=== PATIENT | female | born 1935 | race Two or more races ===

== ENCOUNTER 2019-05-07 09:25 | Emergency (ER) | payer MEDICARE ==
[~2019-05-07] VITALS: Ht 162.6 cm; Wt 59.9 kg
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
--- NOTE | 2019-05-07 09:57 | NUR ---
patient taken to ct.
[2019-05-07] MEDS ORDERED: FERR325T23 PO (10:38)
[2019-05-07] MEDS ORDERED: ASPI-605 PO (10:38)
[2019-05-07] MEDS ORDERED: METF500S7 PO (10:38)
[2019-05-07] MEDS ORDERED: ESCI5TAB PO (10:38)
[2019-05-07] MEDS ORDERED: METO25TA6 PO (10:38)
[2019-05-07] MEDS ORDERED: ATOR10TA PO (10:38)
[2019-05-07] MEDS ORDERED: GLYC0.2V IH (10:38)
[2019-05-07] MEDS ORDERED: LORA-259 PO (10:38)
[2019-05-07] MEDS ORDERED: HYDR-4384 PO ×2 (10:38→10:42)
[2019-05-07] MEDS ORDERED: CRAN425C6 PO (10:38)
[2019-05-07] MEDS ORDERED: CALC-883 PO (10:38)
[2019-05-07] MEDS ORDERED: LINA5TAB PO (10:38)
[2019-05-07] MEDS ORDERED: LEVO100T PO (10:38)
[2019-05-07] MEDS ORDERED: DOCU-141 PO (10:38)
[2019-05-07] MEDS ORDERED: INSU100V10 SQ (10:38)
[2019-05-07] MEDS ORDERED: MULT-439 PO (10:38)
[2019-05-07] MEDS ORDERED: TYL2T PO (10:39)
[2019-05-07] MEDS ORDERED: CRAN3875 PO (10:42)
[2019-05-07] MEDS ORDERED: ACET-2030 PO (10:42)
[2019-05-07] MEDS ORDERED: ASCO500T9 PO (10:42)
[2019-05-07 10:57] LABS: BASOPHILS % (AUTO) 0.6 % (0.0-2.0); EOSINOPHILS % (AUTO) 1.9 % (0.0-6.0); HEMATOCRIT 37 % (33-45); HEMOGLOBIN 12.2 g/dL (11.5-14.8); LYMPHOCYTES # (AUTO) 1.7 /CMM (0.8-4.8); LYMPHOCYTES % (AUTO) 20.2 % (20.0-44.0); MEAN CORPUSCULAR HGB CONC 33 g/dl (31.0-36.0); MEAN CORPUSCULAR VOLUME 97 fL (82-100); MONOCYTES # (AUTO) 0.5 /CMM (0.1-1.30); MONOCYTES % (AUTO) 6.1 % (2.0-12.0); NEUTROPHILS # (AUTO) 5.8 /CMM (1.8-8.9); NEUTROPHILS % (AUTO) 71.2 % (43.0-81.0); PLATELET COUNT (AUTO) 254 /CMM (150-450); RED BLOOD CELL COUNT(AUTO) 3.83 MIL/uL (4.0-5.2); WHITE BLOOD COUNT (AUTO) 8.2 K/uL (4.3-11.0)
[2019-05-07 11:12] LABS: CALCIUM, SERUM 9.2 mg/dL (8.5-10.1); CARBON DIOXIDE 35 mmol/L (21-32); CHLORIDE 103 mmol/L (98-107); CREATININE 0.9 mg/dL (0.6-1.3); GLUCOSE 187 mg/dL (74-106); POTASSIUM 4.8 mmol/L (3.5-5.1); SODIUM SERUM 141 mmol/L (136-145); UREA NITROGEN, BLOOD 28 mg/dL (7-18)
--- NOTE | 2019-05-07 11:26 | NUR ---
CALLED [facility], SPOKE TO [facility] ARRANGED WITH ETA OF 90 MINS, TRIP NUMBER [id number].
--- NOTE | 2019-05-07 13:00 | NUR ---
Patient a/ox2, no change in LOC. Patient discharged to SNF in stable condition. Written and verbal after care instructions given. Patient verbalizes understanding of instruction.
[2019-05-07 13:01] VITALS: BP 136/66
== END 2019-05-07 13:02 ==
LOC: ER 09:29
DX: S09.8XXA Other specified injuries of head, initial encounter (principal); I10 Essential (primary) hypertension; I48.91 Unspecified atrial fibrillation; J44.9 Chronic obstructive pulmonary disease, unspecified; K21.9 Gastro-esophageal reflux disease without esophagitis; E78.5 Hyperlipidemia, unspecified; Z79.899 Other long term (current) drug therapy; Z79.4 Long term (current) use of insulin; Z79.84 Long term (current) use of oral hypoglycemic drugs; Z79.82 Long term (current) use of aspirin; W18.39XA Other fall on same level, initial encounter; Y93.89 Activity, other specified; Y92.89 Other specified places as the place of occurrence of the external cause; Y99.8 Other external cause status
CPT/HCPCS: 36415; 70450-TC; 80048-TC; 84484-TC; 85025-TC